=== PATIENT | male | born 1970 | race Caucasian/White ===

== ENCOUNTER 2018-11-06 18:21 | Emergency (ER) | payer OTHER ==
[~2018-11-06] VITALS: Ht 180.3 cm; Wt 83.9 kg
[~2018-11-06 18:21] MED LIST: ALBU90OI INH; CARI350 PO; CYCL10 PO; Crutch1 EACH MISC; HYDACE5 PO; IBUP400 PO; IBUP600 PO; IBUP800 PO; LISI5 PO; META800 PO; NAPR500 PO; Naprosyn500 MG PO; Norco 5-325 Ta1 EACH PO; OXYACE5T PO; PENVK250 PO; PRED20 PO; PROCODE120 PO; Prednisone20 MG PO; TOBR.3OPO LEFTEYE; TRAM50 PO
[2018-11-06] MEDS ORDERED: Cephalexin500 M1 PO (19:35)
== END 2018-11-06 19:50 | disposition home or self-care (01) ==
LOC: ER 18:21
DX: S52.611A Displaced fracture of right ulna styloid process, initial encounter for closed fracture (principal); L03.115 Cellulitis of right lower limb; R03.0 Elevated blood-pressure reading, without diagnosis of hypertension; W22.8XXA Striking against or struck by other objects, initial encounter; F17.210 Nicotine dependence, cigarettes, uncomplicated
CPT/HCPCS: 29105; 73110; 99283-25